=== PATIENT | male | born 1950 | race Caucasian/White ===

== ENCOUNTER 2023-09-15 05:21 | Inpatient (IN) | payer OTHER, MEDICARE ==
[2023-09-15 06:29] LABS: BASO % 0.9 % (0-2.0); EOS % 0.2 % (0-4.5); HEMATOCRIT 28.9 % (35.4-49); HEMOGLOBIN 9.6 GM/dL (11.7-16.9); LYMPH % 14.4 % (8-40); MCH 30.1 pg (25.7-33.7); MCHC 33.3 g/dl (32.0-35.9); MEAN CELL VOLUME 90.3 fl (80-96); MEAN PLT VOLUME 8.7 fl (7.5-11.1); MONO % 15.9 % (3.8-10.2); NEUT % 68.6 % (42.8-82.8); PLATELET COUNT 235 10^3/uL (134-434); RBC 3.21 M/mm3 (4.00-5.60); WHITE BLOOD COUNT 5.7 K/mm3 (4.0-10.0)
[2023-09-15 06:30] LABS: EPI CELLS 1 /uL (0-25.1); HYALINE CASTS 1 /uL (0-3.1); URINE APPEARANCE TURBID; URINE BACTERIA 817 /uL (0-1359); URINE BILIRUBIN NEGATIVE (NEGATIVE); URINE COLOR YELLOW; URINE GLUCOSE (UA) NEGATIVE (NEGATIVE); URINE KETONE NEGATIVE (NEGATIVE); URINE LEUK ESTERASE 3+ (NEGATIVE); URINE NITRITE NEGATIVE (NEGATIVE); URINE PROTEIN 2+ (NEGATIVE); URINE RBC 114 /uL (0-23.9); URINE UROBILINOGEN 0.2 mg/dL (0.2-1.0); URINE WBC 7371 /uL (0-25.8)
[2023-09-15 06:38] LABS: POTASSIUM 4.7 mmol/L (3.5-5.1)
[2023-09-15 06:39] LABS: BLOOD UREA NITROGEN 64.8 mg/dL (7-18)
[2023-09-15 06:43] LABS: CREATININE 4.1 mg/dL (0.55-1.3)
[2023-09-15 06:45] LABS: BILIRUBIN,TOTAL 0.6 mg/dL (0.2-1)
[2023-09-15] MEDS ORDERED: cefTRIAXone SODIUM 1 GM VIAL ONE (06:56)
[2023-09-15] MEDS: SODIUM CHLORIDE 0.9% 500 ML INFUS.BAG IV ONE (07:10)
[2023-09-15] MEDS: CEFTRIAXONE 1 GM in DEXTROSE 5%-WATER - 50 ML IVPB ONE (07:10)
[2023-09-15] MEDS: CEPHALEXIN MONOHYDRATE 500 MG CAPSULE (UD) PO ONE (08:38)
[2023-09-15 12:33] VITALS: BMI 18.6
[2023-09-15 13:21] LABS: YEAST NOT PRESENT (NEGATIVE)
[2023-09-15] MEDS: FINASTERIDE 5 MG TABLET (FP) PO SCH (14:35)
[2023-09-15] MEDS: SODIUM CHLORIDE 0.45% 1,000 ML IV SCH (16:38)
[2023-09-15] MEDS: SODIUM CHLORIDE 500 ML IV STA ×2 (16:38→20:34)
[2023-09-15] MEDS: HEPARIN NA (PORCINE) 5,000 UNITS/ML 1ML VIAL SQ SCH (21:19)
[2023-09-15] MEDS: ATORVASTATIN CA 10 MG TABLET (FP) PO SCH (21:19)
[2023-09-16] MEDS: ACETAMINOPHEN 325 MG TABLET (FP) PO ONE (03:35)
[2023-09-16 08:51] LABS: HEMATOCRIT 29.8 % (35.4-49); HEMOGLOBIN 9.4 G/dL (11.7-16.9); MCH 28.9 pg (25.7-33.7); MCHC 31.5 g/dl (32.0-35.9); MEAN CELL VOLUME 91.7 fl (80-96); MEAN PLT VOLUME 9.3 fl (7.5-11.1); PLATELET COUNT 237.1 10^3/uL (134-434); RBC 3.25 10^6/uL (4.00-5.60); RDW 14.4 % (11.9-15.9); WHITE BLOOD COUNT 5.8 10^3/uL (4.0-10.8)
[2023-09-16 09:28] LABS: PLATELET ESTIMATE ADEQUATE
[2023-09-16 09:31] LABS: CALCIUM 8.6 mg/dl (8.5-10.1); CREATININE 1.7 mg/dl (0.6-1.3); POTASSIUM 4.7 mmol/L (3.5-5.1); TOT PROT 5.6 g/dl (6.4-8.2)
[2023-09-16] MEDS: CEFTRIAXONE 1 GM in DEXTROSE 5%-WATER - 50 ML IVPB SCH (09:46)
[2023-09-16 10:10] VITALS: BP 102/73; PULSE 73; RESP 18; TEMP 98.4
[2023-09-16 11:29] LABS: BILIRUBIN,TOTAL 0.3 mg/dl (0.2-1)
== END 2023-09-16 13:45 | disposition home or self-care (01) | DRG 726 ==
LOC: FER 05:21 → FM/S 06:46
DX: N40.1 Benign prostatic hyperplasia with lower urinary tract symptoms (principal); N17.9 Acute kidney failure, unspecified; N39.0 Urinary tract infection, site not specified; E78.5 Hyperlipidemia, unspecified; I10 Essential (primary) hypertension; D64.9 Anemia, unspecified; N13.9 Obstructive and reflux uropathy, unspecified
CPT/HCPCS: 36415; 74176-TC; 80053; 81003; 85025; 87077; 87086; 93005; 99285-25; J1644